=== PATIENT | female | born 1975 | race African-American/Black ===

== ENCOUNTER 2016-10-31 01:51 | Inpatient (IN) | payer OTHER ==
[~2016-10-31] VITALS: Ht 167.6 cm; Wt 90.7 kg
[~2016-10-31 01:51] MED LIST: CYCLOBENZAPRINE10 M1 PO; GABAPENTIN600 M1 PO; MOTRIN; NAPROSYN500 M1 PO; NEXIUM40 M1 PO; PERCOCET 5-3251 EACH PO; TRAMADOL HCL50 M1 PO; ZOLOFT25 M1 PO
--- NOTE | 2016-10-31 11:49 | Operative Report ---
Operative/Inv Procedure Report Surgery Date: 10/31/16 Name of Procedure: Total abdominal hysterectomy right ovarian cystectomy Pre-Operative Diagnosis: Pelvic pain Post-Operative Diagnosis: Fibroid uterus and same Estimated Blood Loss: 500 Surgeon/Joiner Apprentice: RED LARIOS,MARK Plaza and Dr. Jeremiah Sherman Anesthesia: general endotracheal tube Operative/Procedure Note Note: Procedure note patient was taken the operating room placed on physician of Dr. Artur Lehman patient was also found position the guidepin fashion patient was consented and had stents placed by Wisam Macario MD patient was returned supine position on at this point the abdomen was prepped draped sterile fashion to a Pfannenstiel skin incision to prevent midsubstance pubis and midline screws, scar denser rectus fascia his contralateral fashion on a direction parallel cavity was entered onto the abdomen Mortensen O'[place] was usual fashion patient tolerated that well at this point the round ligament on the right was identified and suture ligated left suture ligated using 0 and the bladder flap was developed patient tolerated that well. Bladder flap was developed sharply using Metzenbaums and Bovie at this point sequentially the branches of the uterine arteries were clamped and caught on the right and left to the level of the external os cervix was bulbous consistent with a fibroid patient was being operated on for pain the fibroid which was connected to cervix was removed the cuff was oversewn running locking suture of 0 was imbricated interrupted figure- of-eight for hemostasis at this point the cyst that was on the right ovary was removed using a Bovie the wall was reapproximated using 20 hemostasis was apparent at the end of the case the cough was irrigated found to be hemostatic E [place] was applied to the CUFF or from the abdomen and lap pads to counts correct the peritoneum was reapproximated with 2 0 sutures to Bovie coagulation of the subcutaneous tissue was performed patient tolerated that well skin was reapproximated with carlene at the end the case counts correct urine was clear on the stents were removed bilaterally to Findings: Normal left ovary and tube portion of right to surgically removed simple cysts on right ovary and uterus consistent with multiple fibroids 14 week size
--- NOTE | 2016-10-31 13:36 | Operative Report ---
Operative/Inv Procedure Report Surgery Date: 10/31/16 Name of Procedure: cysto: bilateral stent placement Pre-Operative Diagnosis: pelvic pain/fibroids Post-Operative Diagnosis: same Estimated Blood Loss: scant Surgeon/Supervisor Soakers: md jovani, sheyla-urology Anesthesia: general endotracheal tube Drains: 18fr verde Complications: none Operative/Procedure Note Note: The patient was taken to the operating room and placed on the OR table in supine position. Timeout was performed, with the patient awake, to confirm identify, planned procedures, anesthesia, antibiotics and other pertinent maria eugenia-operative information. After adequate anesthesia, and IV antibiotics, the patient was placed in lithotomy Yellow-fin stirrups. She was then draped and prepped in the usual surgical fashion, including a vaginal prep. A 22 Comoran cystoscope sheath with a 30 angle lens was inserted into the bladder without significant difficulty. The bladder was thoroughly and systematically examined, and was noted to be free of tumor, free of stone, free of endometriosis. Both ureteral orifices were in their orthotopic positions with clear reflux bilaterally. Under direct visualization the left orifice was intubated with a 5 Comoran whistle-tip catheter, which was advanced easily into the left kidney pelvis. The right ureteral orifice was intubated with a second 5 [place]an ureteral whistle tip catheter, and advanced into the right renal pelvis without difficulty. For identification purposes the blue marked stent went into the left kidney and the right ureteral stent was marked red. Urine culture was obtained and sent to pathology. The cystoscope was then removed leaving both stents in proper place. An 18 Com[place]an Verde catheter was inserted draining clear fluid and 10 mL of sterile water was then placed in the balloon. The ends ureteral stents, which protruded externally, were taped to the Verde catheter in order to secure their position. The individual ureteral stents were then connected to their individual drainage devices. The patient tolerated the procedure well. All sponge needle and instrument count were correct at the end of this procedure. The patient was then placed in supine position with Venodyne's in place. At this point, Dr. Hagan was able to proceed with her patient's surgery. Discharge Disposition: proceed with Dr. Hagan CC: SHEYLA QUEZADA MD
--- NOTE | 2016-10-31 13:45 | NUR ---
ARRIVED TO FLOOR VIA STRETCHER FROM OR. A & O X 3. ON RA. VSS. C/O PAIN TO LOWER ABDOMEN /, DILAUDID PHYSICIAN OFFICE SECRETARY INFUSING, EDUCATION PROVIDED. DSG TO LOWER ABDOMEN C/D/I, ABD BINDER ALSO IN PLACE. IVF INFUSING. ORIENTED TO CALL SYSTEM. TORRES TO GRAVITY. WILL MONITOR.
[2016-10-31 13:53] VITALS: BP 136/80
[2016-10-31 16:00] VITALS: BP 130/80
[2016-10-31 18:09] VITALS: BP 126/80
[2016-10-31 20:13] VITALS: BP 120/80
--- NOTE | 2016-10-31 20:30 | NUR ---
PT STATES SHE TAKES GABAPENTIN 600MG BID. MEDICATION NOT ON PTS EMAR. DR VALLECILLO RETURNED CALL. PER , ORDER PLACED FOR GABAPENTIN, OK TO GIVE MEDICATION WITH WATER.
[2016-10-31 22:00] VITALS: BP 112/60
--- NOTE | 2016-10-31 22:30 | NUR ---
PT C/O 8/10 PAIN TO LOWER ABD AND BACK. PT REPOSITIONED FOR COMFORT. TORADOL 30MG IV PRN ADMINISTERED PER EMAR IN ADDITION TO DILAUDID OFFICE CLERK ASSISTANT. PT INSTRUCTED AND EDUCATED ON OFFICE CLERK ASSISTANT PUMP. WILL REASESS PAIN LEVEL IN ONE HOUR AFTER ADMIN OF TORADOL. WILL CONTINUE TO MONITOR.
[2016-11-01] VITALS (11 sets, daily range): BP systolic 110–140; BP diastolic 60–82
[2016-11-01 07:16] LABS: ABSOLUTE BASOPHIL COUNT 0 /CUMM (0.0-0.2); ABSOLUTE EOSINOPHIL COUNT 0 /CUMM (0.0-0.7); ABSOLUTE GRANULOCYTE CT 9.4 /CUMM (1.4-6.5); ABSOLUTE LYMPH COUNT 1.6 /CUMM (1.2-3.4); ABSOLUTE MONOCYTE COUNT 0.6 /CUMM (0.10-0.60); BASOPHIL % 0.4 % (0.0-2.0); EOSINOPHIL % 0.4 % (0-5); GRANULOCYTE % 79.9 % (42.2-75.2); HEMATOCRIT 36.4 % (37-47); MEAN CORPUSCULAR HGB 31.7 PG (27.0-31.0); MEAN CORPUSCULAR HGB CONC 33.3 G/DL (33.0-37.0); MEAN CORPUSCULAR VOLUME 95.3 FL (81.0-99.0); MEAN PLATELET VOLUME 8.5 FL (7.4-10.4); PLATELET COUNT 232 /CUMM (130-400); RBC DISTRIBUTION WIDTH 13.6 % (11.5-14.5); RED BLOOD CELL CT 3.82 /CUMM (4.20-5.40); WHITE BLOOD CELL COUNT 11.8 /CUMM (4.8-10.8)
--- NOTE | 2016-11-01 09:14 | PN- Post Delivery/GYN ---
Subjective Subjective: WANTS TO EAT Objective Last 24 Hrs of Vital Signs/I&O Vital Signs Date Time Temp Pulse Resp B/P B/P Pulse O2 O2 Flow FiO2 Mean Ox Delivery Rate 11/01 0627 98.1 89 20 116/62 94 Room Air 11/01 0359 98.7 103 20 110/72 92 Room Air 11/01 0159 98.3 76 20 116/60 93 Room Air 11/01 0053 98.6 62 20 120/60 94 Room Air 10/31 2200 98.5 88 20 112/60 93 Room Air 10/31 2012 98.8 67 20 120/80 94 Room Air 10/31 1809 97.9 64 20 126/80 95 Room Air 10/31 1600 98.2 84 20 130/80 95 Room Air 10/31 1353 98.0 78 16 136/80 10/31 1353 98.0 78 16 136/80 96 Room Air Intake & Output 11/01 1600 11/01 0800 11/01 0000 Intake Total 500 Output Total 500 400 Balance -500 100 Intake, IV 500 Intake, Oral 0 Output, Urine 500 400 Physical Exam: PE WELL BUILT BF ABD SOFT NT INISICION CDI EXT -EDEMA-HOMANS Assessment/Plan Assessment/Plan ASSESS S/PTAH PLAN CONT PPC ADVANCE DIET OOB
--- NOTE | 2016-11-01 11:28 | NUR ---
MERCHANDISING EXECUTION MANAGER STOPPED AT 0930, 43.3 MG WASTED. TORRES REMOVED AND FLUIDS STOPPED AT THIS TIME WELL, PT DTV BY 1530.
[2016-11-02 07:12] VITALS: BP 120/76
[2016-11-02] MEDS ORDERED: PERCOCET 5-3251 EACH PO (08:00)
[2016-11-02] MEDS ORDERED: IBUPROFEN800 M1 PO (08:00)
--- NOTE | 2016-11-02 08:13 | PN- Post Delivery/GYN ---
Subjective Subjective: NO FLATU S NOT GETTING OUT OF BED B/C OF PAIN Objective Last 24 Hrs of Vital Signs/I&O Vital Signs Date Time Temp Pulse Resp B/P B/P Pulse O2 O2 Flow FiO2 Mean Ox Delivery Rate 11/02 0712 98.3 100 18 120/76 94 Room Air 11/01 2323 98.5 74 20 122/60 94 Room Air 11/01 1401 97.7 68 20 140/70 96 Room Air Intake & Output 11/02 1600 11/02 0800 11/02 0000 Intake Total 300 400 Output Total Balance 300 400 Intake, Oral 300 400 Physical Exam: PE TALL BF ABD SOFT NT +BS EXT -EDEMA-HOMANS Assessment/Plan Assessment/Plan ASSESS S/P FRANNIE PLAN OOB DILAUDID
[2016-11-02 15:55] VITALS: BP 110/60
[2016-11-02 22:23] VITALS: BP 122/70
[2016-11-03 06:29] VITALS: BP 114/68
[2016-11-03] MEDS ORDERED: HYDROMORPHONE HC2 M1 PO (11:21)
[2016-11-03] MEDS ORDERED: DOCUSATE SODIU100 M3 PO (11:21)
--- NOTE | 2016-11-07 10:45 | Surgical Discharge Summary ---
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 Home Who Do You Live With? Significant Other What is Your Primary Language? Maori Review of Systems: -13 point review of systems as stated in the [facility] Hospital Course Course Attending Physician: MARK MOON MD Primary Care Physician: THOMAS LARIOS,[place] [facility] Course: She was admitted for a total abdominal hysterectomy she did well first postoperative day patient complained of hunger on issues had good bowel sounds was given a regular diet on second postoperative day patient complained of no bowel movement gas she continued to tolerate regular diet she continues to complain of right-sided pain her pain medication was changed from Percocet to start wanted on third postoperative day the patient was discharged home the following physical exam she is a black female HEENT anicteric abdomen soft nontender incision clean dry and intact extremities negative edema negative Homans Allergies: Coded Allergies: No Known Allergies (03/20/16) Disposition Summary Disposition Principal Diagnosis: Sinus post total abdominal hysterectomy Additional Diagnosis: Anemia Discharge Disposition: home or self care Discharge Instructions General Discharge Information Code Status: Full Code Patient's Diet: Regular Patient's Activity: Pelvic rest 6 weeks no driving for 2 weeks no heavy heavy lifting for 6 weeks Follow-Up Instructions/Appts: 2 weeks in my office 1 week in my office for staple removal Medications at Discharge Discharge Medications: Stop taking the following medications: [MOTRIN] 800 MG as needed for PAIN Continue taking these medications: Tramadol HCl (Tramadol HCl) 50 MG TABLET 1 Tablet ORAL THREE TIMES A DAY NEEDED Comments: NOT GIVEN IN HOSPITAL Gabapentin (Gabapentin) 600 MG TABLET 1 Tablet ORAL TWICE DAILY Comments: Last Taken: 11/03/16 Time: 10:00 Sertraline HCl (Zoloft) 25 MG TABLET 1 Tablet ORAL DAILY Comments: Last Taken: 11/03/16 Time: 10:00 Esomeprazole (Nexium) 40 MG CAPSULE.DR 1 Capsule ORAL DAILY Comments: NOT GIVEN IN HOSPITAL Start taking the following new medications: Hydromorphone HCl (Hydromorphone HCl) 2 MG TABLET 2 Milligram ORAL EVERY 3 HOURS NEEDED as needed for PAIN SCALE 7-10 ( SEVERE) Qty = 30 No Refills Comments: Last Taken:11/03/16 Time:10:00 Docusate Sodium (Docusate Sodium) 100 MG CAPSULE 100 Milligram ORAL TWICE DAILY Qty = 60 No Refills Comments: Last Taken: 11/03/16 Time: 10:00
== END 2016-11-03 12:00 | DRG 519 ==
LOC: 2NA 01:51 → SDA 01:51 → ENRESERV 12:08 → 2NA 13:33 → ENPENDDIS 11-02 08:00 → 2NA 11-03 12:00
PROVIDERS: ADMIT Specialist
PROC: 0UT90ZZ Resection of Uterus, Open Approach (ICD-10-PCS; principal; 2016-10-31)
PROC: 0UTC0ZZ Resection of Cervix, Open Approach (ICD-10-PCS; principal; 2016-10-31)
PROC: 0UB00ZZ Excision of Right Ovary, Open Approach (ICD-10-PCS; principal; 2016-10-31)
PROC: 0T788DZ Dilation of Bilateral Ureters with Intraluminal Device, Via Natural or Artificial Opening Endoscopic (ICD-10-PCS; 2016-10-31)
DX: D25.9 Leiomyoma of uterus, unspecified (principal); R10.2 Pelvic and perineal pain; K21.9 Gastro-esophageal reflux disease without esophagitis; F17.200 Nicotine dependence, unspecified, uncomplicated; F32.9 Major depressive disorder, single episode, unspecified
CPT/HCPCS: 2NAP; 36415; 81001; 81025; 87086; 88307; 93005; 93010; J0131; J0694; J1170; J1200; J1650; J1885; J2405